=== PATIENT | female | born 1970 | race Caucasian/White ===

== ENCOUNTER 2017-09-14 11:54 | Day surgery (SDC) | END 2017-09-14 18:02 | disposition home or self-care (01) ==

== ENCOUNTER 2018-05-19 07:32 | Observation (INO) | payer OTHER ==
[2018-05-18 15:13] VITALS: BMI 42.9
[2018-05-19] VITALS (29 sets, daily range): BP systolic 110–168; BP diastolic 59–107; PULSE 61–93; RESP 9–23; Ht 162.6 cm; Wt 115.9 kg
[~2018-05-19] VITALS: Ht 162.6 cm; Wt 115.9 kg
[~2018-05-19 07:32] MED LIST: CEFAZOLIN 1 GM INJ ONE; CIPR500T4 PO; LOSA1TAB25 PO; NIFE30TA23 PO; PROPOFOL 200 MG INJ ONE; SEVOFLURANE 15 MIN ONE
[2018-05-19] MEDS ORDERED: SOD CHLORIDE 0.9% 1,000 ML IV SCH (09:00)
[2018-05-19] MEDS ORDERED: CEFAZOLIN 2 GM/50 ML (PMX) 50 ML IVPB ONE (09:00)
--- NOTE | 2018-05-19 10:51 | PREAC ---
Date/Time of Note Date/Time of Note DATE: 05/19/18 TIME: 10:49 Anesthesia Eval and Record Evaluation Time Pre-Procedure Interview DATE: 05/19/18 TIME: 10:49 Age 48 Sex female NPO: 8 hrs Preoperative diagnosis left breast mass Planned procedure left needle localization excisional biopsy Past Medical History Past Medical History: Includes Cardio: HTN GI: Morbid obesity Surgery & Anesthesia Issues No known issue Meds Anticoagulation: No Beta Hai within 24 hr: No Reason Beta Hai not given: Pt. not on B-Hai Reported Medications Nifedipine* (Nifedipine ER*) 30 Mg Tablet.sa, 30 MG PO DAILY, TAB.SA 09/14/17 Losartan-Hydrochlorothiazide (Losartan-HCTZ) 100-25 Mg Tab, 1 TAB PO DAILY, TAB 09/14/17 Discontinued Reported Medications Ciprofloxacin Hcl* (Ciprofloxacin Hcl*) 500 Mg Tablet, 500 MG PO BID, #14 TAB FOR 7 DAYS STARTED 09-13-17 09/14/17 Current Medications Sodium Chloride 1,000 ml @ 75 mls/hr [id number] IV ; Start 05/19/18 at 09:00; Stop 05/19/18 at 22:19 Meds reviewed: Yes Allergies Coded Allergies: No Known Allergy (Unverified , 05/19/18) Allergies Reviewed: Yes Labs/Studies Labs Reviewed: Reviewed by anesthesiologist test: Negative Pre-procedure Exam Airway: Adequate mouth opening, Adequate thyromental dist Mallampati: Mallampati II Teeth: Normal Lung: Normal Heart: Normal ASA Physical Status ASA physical status: 3 Emergency: None Planned Anesthetic General/MAC: LMA Planned Pain Management Parenteral pain med Pre-operative Attestations Prior to commencing anesthesia and surgery, the patient was re-evaluated, there was verification of: *The patient's identity *The results of appropriate recent lab work and preoperative vital signs *The above evaluation not changing prior to induction *Anesthetic plan, risk benefits, alternative and complications discussed with patient/family; questions answered; patient/family understands, accepts and wishes to proceed. KARIE CARL MD May 19, 2018 10:50
[2018-05-19] MEDS ORDERED: PROCHLORPERAZINE 10 MG INJ IV PRN (11:30)
[2018-05-19] MEDS ORDERED: DIPHENHYDRAMINE 50 MG INJ IV PRN (11:30)
[2018-05-19] MEDS ORDERED: MEPERIDINE 25 MG INJ IV PRN (11:30)
[2018-05-19] MEDS ORDERED: HYDROmorphONE 1 MG/5 ML IV SYRINGE IV PRN ×3 (11:30)
[2018-05-19] MEDS ORDERED: EPHEDrine SULFATE 50 MG/5 ML SYG IV PRN (11:30)
[2018-05-19] MEDS ORDERED: LABETALOL HCL 20MG INJ IV PRN (11:30)
[2018-05-19] MEDS ORDERED: FENTAnyl 50 MCG/ML VIAL IV PRN ×3 (11:30)
[2018-05-19] MEDS ORDERED: ONDANSETRON 4 MG INJ IV PRN ×2 (11:30→14:30)
[2018-05-19] MEDS ORDERED: OXYCODONE/ACETAMINOPHEN (5/325) TAB PO PRN ×2 (11:30)
[2018-05-19] MEDS ORDERED: hydrALAzine 20 MG INJ IV PRN (11:30)
[2018-05-19] MEDS ORDERED: LIDOCAINE 2% (SDV) 5 ML INJ ONE (11:43)
[2018-05-19] MEDS ORDERED: PROPOFOL 20 ML ONE (11:43)
[2018-05-19] MEDS ORDERED: MIDAZOLAM 1 MG/ML 2 ML INJ ONE (11:44)
[2018-05-19] MEDS ORDERED: FENTAnyl 50 MCG/ML VIAL ONE (11:44)
[2018-05-19] MEDS ORDERED: DEXAMETHASONE 4 MG/ML 5 ML INJ ONE (12:03)
[2018-05-19] MEDS ORDERED: ONDANSETRON 4 MG INJ ONE (12:03)
[2018-05-19] MEDS ORDERED: FAMOTIDINE 20 MG INJ ONE (12:04)
--- NOTE | 2018-05-19 12:31 | SIPON ---
Date/Time of Note Date/Time of Note DATE: 05/19/18 TIME: 12:30 Operative Report Preoperative Diagnosis Left breast mass Postoperative Diagnosis Same Operation/Procedure Performed Needle directed excisional biopsy of left breast mass Surgeon see signature line glass ribbon machine operator assistant Dr Trevino Anesthesia: general Estimated blood loss: 10 - 50 ml's Transfusion Required none Specimen Left breast mass Grafts/Implants none Complications none BENJAMIN EMERY MD May 19, 2018 12:31
--- NOTE | 2018-05-19 12:49 | OPR ---
DATE OF OPERATION: 05/19/2018 PREOPERATIVE DIAGNOSIS: Left breast mass. POSTOPERATIVE DIAGNOSIS: Left breast mass. OPERATION PERFORMED: Needle-directed left breast excisional biopsy. ANESTHESIA: General. ANESTHESIOLOGIST: Nurse cylinder block hole reliner, Hakeem Casillas. ENGINEERED WOOD DESIGNER: Yves Trevino MD INDICATIONS FOR PROCEDURE: The patient is a 48-year-old female who presented with a tender breast ma ss in the lateral aspect of her breast. It was very vaguely palpable. Biopsies revealed probable be nign findings, but she requested excision. She consented and was scheduled for surgery. DESCRIPTION OF PROCEDURE: The patient was brought to the operating theater, placed under general ane sthesia. The left breast was prepped and draped in usual sterile fashion. The previously placed loc alization wire was in the posterior lateral aspect of the breast. An incision was made directly over the area where the wire was located. Subcutaneous tissue was dissected with cautery. Skin edges we re elevated with skin hooks. Wide circumferential dissection of the tissue associated with the wire then took place using cautery. Specimen was elevated, transected and sent for radiographic confirmat ion of capture. Capture was confirmed. Specimen was then sent for permanent pathologic analysis. T he wound was irrigated. Minimal bleeding was controlled with cautery, and the skin was then reapprox imated and a #10 flat José Antonio-Koroma drain was then brought through the left mid axillary line, cut to size and laid within the large wound cavity. It was secured in place with 2-0 nylon suture in the s tandard fashion and the skin was reapproximated with a 4-0 Vicryl suture in subcuticular fashion. Be nzoin and Steri-Strips were then applied. The patient tolerated procedure well. The estimated blood loss was 20 mL. There were no complications and the patient was transported in stable condition to the recovery room. Dictated By: BENJAMIN EMERY MD TL/NTS Conf#: [id number] DID#: [id number] CC: YVES TREVINO MD;*EndCC*
--- NOTE | 2018-05-19 12:57 | PAC ---
Date/Time of Note Date/Time of Note DATE: 05/19/18 TIME: 12:56 Post-Anesthesia Notes Post-Anesthesia Note Last documented vital signs Vital Signs Date Temp Pulse Resp B/P (MAP) Pulse Ox O2 O2 Flow FiO2 Time Delivery Rate 05/19/18 97.9 61 16 127/78 96 11:21 (94) Activity: WNL Respiratory function: WNL Cardiovascular function: WNL Mental status: Baseline Pain reasonably controlled: Yes Hydration appropriate: Yes Nausea/Vomiting absent: Yes Comments BP: 139/64 HR: 66 RR: 15 T: 98.6 SaO2: 99% KARIE CARL MD May 19, 2018 12:57
[2018-05-19] MEDS ORDERED: HYDROCODONE/APAP (7.5/325) TAB PO PRN (13:00)
--- NOTE | 2018-05-19 14:59 | HP ---
Date/Time of Note Date/Time of Note DATE: 05/19/18 TIME: 14:56 Assessment/Plan VTE Prophylaxis Risk score (from Ns)>0 risk: 0 SCD applied (from Ns): Yes Pharmacological prophylaxis: NA/contraindicated Pharm contraindication: surgical contra Lines/Catheters IV Catheter Type (from Nrsg): Peripheral IV Assessment/Plan Hospital Course 1. S/p needle-directed left breast excisional biopsy by dr Downs. 2. Left breast mass 3. Hypertension 4. Hx of right knee arthritis 5. DDD per pt, lumbar area 6. Obesity 7. HX OF x3. 8. Hx of D and C in 1995. 9. Hx of tubal ligation in 2007 10. Hx of kidney stone removed in 2014 Assessment/Plan -pt is on observation, poss dc tomorrow -pain control morphine qand Oxycodone -SCD bilaterally -GI prophylaxis protonix -2 G Na diet -restart Nifedipine 30 Mg Tablet PO DAILY, and Losartan 50 mg po BID HPI/ROS Admit Date/Time Admit Date/Time May 19, 2018 at 14:22 Hx of Present Illness SURGICAL HISPTRY : x3. She had D and C in 1995. She had tubal ligation in 2007 and she had kidney stone removed in 2014. ROS left breast pain Skin: skin lesions (left skin pain in postop area) PMH/Family/Social Past Medical History Medical History: hypertension, other (dorsalgia) Medications Current Medications Sodium Chloride 1,000 ml @ 75 mls/hr [id number] IV ; Start 05/19/18 at 09:00; Stop 05/19/18 at 22:19 Hydromorphone HCl (Dilaudid) 0.2 mg PACU PRN IV MILD PAIN 1-3; Start 05/19/18 at 11:30; Stop 05/19/18 at 17:00 Hydromorphone HCl (Dilaudid) 0.4 mg PACU PRN IV MOD PAIN 4-6; Start 05/19/18 at 11:30; Stop 05/19/18 at 17:00 Hydromorphone HCl (Dilaudid) 0.6 mg PACU PRN IV SEVERE PAIN 7-10 Last administered on 05/19/18at 13:02; Admin Dose 0.6 MG; Start 05/19/18 at 11:30; Stop 05/19/18 at 17:00 Fentanyl (Sublimaze) 25 mcg PACU ORDER PRN IV MILD PAIN 1-3; Start 05/19/18 at 11:30; Stop 05/19/18 at 17:00 Fentanyl (Sublimaze) 50 mcg PACU ORDER PRN IV MOD PAIN 4-6 Last administered on 05/19/18at 13:02; Admin Dose 50 MCG; Start 05/19/18 at 11:30; Stop 05/19/18 at 17:00 Fentanyl (Sublimaze) 75 mcg PACU ORDER PRN IV SEVERE PAIN 7-10; Start 05/19/18 at 11:30; Stop 05/19/18 at 17:00 Oxycodone/ Acetaminophen (Percocet (5/ 325)) 1 tab PACU ORDER PRN PO .PAIN 1-5; Start 05/19/18 at 11:30; Stop 05/19/18 at 17:00 Oxycodone/ Acetaminophen (Percocet (5/ 325)) 2 tab PACU ORDER PRN PO .PAIN 6-10 Last administered on 05/19/18at 13:55; Admin Dose 2 TAB; Start 05/19/18 at 11:30; Stop 05/19/18 at 17:00 Ondansetron HCl (Zofran Inj) 4 mg PACU ORDER PRN IV NAUSEA/VOMITING Last administered on 05/19/18at 13:02; Admin Dose 4 MG; Start 05/19/18 at 11:30; Stop 05/19/18 at 17:00 Prochlorperazine (Compazine Inj) 5 mg PACU ORDER PRN IV NAUSEA/VOMITING; Start 05/19/18 at 11:30; Stop 05/19/18 at 17:00 Labetalol HCl (Labetalol) 5 mg PACU ORDER PRN IV HIGH BLOOD PRESSURE; Start 05/19/18 at 11:30; Stop 05/19/18 at 17:00 Hydralazine HCl (Apresoline) 5 mg PACU ORDER PRN IV HIGH BLOOD PRESSURE; Start 05/19/18 at 11:30; Stop 05/19/18 at 17:00 Ephedrine Sulfate 5 mg PACU ORDER PRN IV BLOOD PRESSURE SUPPORT; Start 05/19/18 at 11:30; Stop 05/19/18 at 17:00 Meperidine HCl (Demerol) 25 mg PACU ORDER PRN IV .RIGORS Last administered on 05/19/18at 13:16; Admin Dose 25 MG; Start 05/19/18 at 11:30; Stop 05/19/18 at 17:00 Diphenhydramine HCl (Benadryl) 25 mg PACU ORDER PRN IV .PRURITUS; Start 05/19/18 at 11:30; Stop 05/19/18 at 17:00 Influenza Virus Vaccine Quadrival (Fluzone) 0.5 ml ONCE ONCE IM* ; Start 05/22/18 at 10:00; Stop 05/22/18 at 10:01 Morphine Sulfate (morphine) 2 mg Q2H PRN IV SEVERE PAIN LEVEL 7-10; Start 05/19/18 at 14:30 Oxycodone/ Acetaminophen (Percocet (5/ 325)) 2 tab Q4H PRN PO MODERATE PAIN LEVEL 4-6; Start 05/19/18 at 14:30 Ondansetron HCl (Zofran Inj) 4 mg Q4H PRN IV NAUSEA AND/OR VOMITING; Start 05/19/18 at 14:30 Potassium Chloride/Dextrose/ Sod Cl 1,000 ml @ 125 mls/hr Q8H IV ; Start 05/19/18 at 14:30 Coded Allergies: No Known Allergy (Unverified , 05/19/18) Past Surgical History Past Surgical Hx: other (3 c section, D and C in 1995, tubal ligation in 2007, and kidney stone removed in 2014) Social History Alcohol Use: none Smoking Status: Never smoker Drug Use: none Exam/Review of Systems Vital Signs Vitals Vital Signs Date Temp Pulse Resp B/P (MAP) Pulse Ox O2 O2 Flow FiO2 Time Delivery Rate 05/19/18 15 144/72 97 Nasal 14:19 (96) Cannula 05/19/18 68 13:44 05/19/18 98.6 13:03 Exam Constitutional: alert, oriented Head: normocephalic ENMT: nl external ears & nose Neck: supple Respiratory: clear to auscultation Cardiovascular: regular rate and rhythm Gastrointestinal: soft Extremities: normal pulses Skin: other (left breast surgical dressing) KEELY SLADE May 19, 2018 14:59
[2018-05-19] MEDS: D5W-0.45 NACL + KCL 20 MEQ 1,000 ML IV SCH (15:40)
[2018-05-19] MEDS: morphine 2 MG INJ IV PRN ×2 (15:44→21:24)
[2018-05-19] MEDS: OXYCODONE/ACETAMINOPHEN (5/325) TAB PO PRN (18:42)
[2018-05-19] MEDS: LOSARTAN 50 MG TAB PO SCH (21:00)
[2018-05-20] MEDS: D5W-0.45 NACL + KCL 20 MEQ 1,000 ML IV SCH ×2 (00:20→06:30)
[2018-05-20 02:22] VITALS: BP 120/60; PULSE 69; RESP 18
[2018-05-20 06:00] VITALS: BP 142/71; PULSE 72; RESP 18
[2018-05-20] MEDS ORDERED: PANTOPRAZOLE (EC) 40 MG TAB PO SCH (06:00)
[2018-05-20] MEDS: morphine 2 MG INJ IV PRN (06:02)
[2018-05-20 07:42] VITALS: BP 111/67; PULSE 70; RESP 18
[2018-05-20] MEDS: LOSARTAN 50 MG TAB PO SCH (08:29)
[2018-05-20] MEDS ORDERED: NIFEdipine (XL) 30 MG TAB PO SCH (09:00)
[2018-05-20] MEDS: OXYCODONE/ACETAMINOPHEN (5/325) TAB PO PRN ×2 (10:00→13:58)
--- NOTE | 2018-05-20 13:00 | DS ---
Date/Time of Note Date/Time of Note DATE: 05/20/18 TIME: 13:00 Discharge Summary Admission/Discharge Info Admit Date/Time May 19, 2018 at 14:22 Discharge Date/Time Discharge Diagnosis 1. S/p needle-directed left breast excisional biopsy by dr Ibarra. Patient Condition: Stable Consults DR Ibarra, Surgery Hospital Course This 48 yo obese female with medical history of hypertension had mass found in left breast. Dr Ibarra had biopsy of breast mass. Pt is in recovery room with minimal pain and dressing with CORNELL bulb. SURGICAL HISTORY : x3. She had D and C in 1995. She had tubal ligation in 2007 and she had kidney stone removed in 2014. Impression: 1. S/p needle-directed left breast excisional biopsy by dr Ibarra. 2. Left breast mass 3. Hypertension 4. Hx of right knee arthritis 5. DDD per pt, lumbar area 6. Obesity 7. HX OF x3. 8. Hx of D and C in 1995. 9. Hx of tubal ligation in 2007 10. Hx of kidney stone removed in 2014 During hospitalization pt was admit for observation, her pain was controlled, Her BP was under control as well. Pt was freely ambulated, she was eating regular diet. Her surgical dressing was intact. On the next day 05/20/2018 Dr Aquino, surgery MD who covered Dr Ibarra consulted the patient and cleared her for discharge. Pt was discharged home. Home Meds Reported Medications Nifedipine* (Nifedipine ER*) 30 Mg Tablet.sa, 30 MG PO DAILY, TAB.SA 09/14/17 Losartan-Hydrochlorothiazide (Losartan-HCTZ) 100-25 Mg Tab, 1 TAB PO DAILY, TAB 09/14/17 Discontinued Reported Medications Ciprofloxacin Hcl* (Ciprofloxacin Hcl*) 500 Mg Tablet, 500 MG PO BID, #14 TAB FOR 7 DAYS STARTED 09-13-17 09/14/17 Follow-up Plan Dr Ibarra office Primary Care Provider Kolton Luz MD Time spent on discharge: < 30 minutes Pending Labs Laboratory Tests Test 05/20/18 04:33 05/20/18 07:17 White Blood Count 12.3 10^3/ul (4.8-10.8) Red Blood Count 4.67 10^6/ul (4.20-5.40) Hemoglobin 13.2 g/dl (12.0-16.0) Hematocrit 40.0 % (37.0-47.0) Mean Corpuscular Volume 85.7 fl (82.0-101.0) Mean Corpuscular Hemoglobin 28.3 pg (29.0-33.0) Mean Corpuscular 33.0 g/dl (32.0-37.0) Hemoglobin Concent Red Cell Distribution Width 12.8 % (11.5-14.5) Platelet Count 284 10^3/UL (140-415) Mean Platelet Volume 11.4 fl (7.4-10.4) Immature Granulocytes % 0.300 % (0.001-0.429) Neutrophils % 87.8 % (39.0-77.0) Lymphocytes % 7.6 % (15.0-51.0) Monocytes % 4.1 % (0.0-11.0) Eosinophils % 0.0 % (0.0-7.0) Basophils % 0.2 % (0.0-2.0) Nucleated Red Blood Cells % 0.0 /100WBC (0.0-0.0) Immature Granulocytes # 0.040 10^3/ul (0.0-0.031) Neutrophils # 10.8 10^3/ul (1.6-7.5) Lymphocytes # 0.9 10^3/ul (0.8-2.9) Monocytes # 0.5 10^3/ul (0.3-0.9) Eosinophils # 0.0 10^3/ul (0.0-0.5) Basophils # 0.0 10^3/ul (0.0-0.1) Nucleated Red Blood Cells # 0.0 10^3/ul (0.0-0.0) Sodium Level 136 mmol/L (135-144) Potassium Level 4.0 mmol/L (3.5-5.1) Chloride Level 104 mmol/L (97-110) Carbon Dioxide Level 26 mmol/L (21-31) Anion Gap 6 (5-13) Blood Urea Nitrogen 10 mg/dl (7-20) Creatinine 0.72 mg/dl (0.44-1.00) Est Glomerular Filtrat > 60 mL/min (>60) Rate mL/min Glucose Level 137 mg/dl (70-220) Hemoglobin A1c 5.0 % (0-5.9) Calcium Level 8.8 mg/dl (8.4-10.2) Lab Scanned Report [facility] [id number] KEELY SLADE May 20, 2018 13:00
--- NOTE | 2018-05-20 13:01 | PDOCDIS ---
Discharge Instructions DIAGNOSIS Discharge Diagnosis s/p biopsy CONDITION [id number] Patient Condition: [id number] Stable ACTIVITY: [id number] Activity Restrictions: [id number] Slowly Increase Activity Rest between Activity Avoid heavy lifting [id number] Bathing Restrictions: [id number] Sponge Bath FOLLOW UP/APPOINTMENTS Follow-up Plan Dr jacob office 1 week KEELY SLADE May 20, 2018 13:01
== END 2018-05-20 14:05 | disposition home or self-care (01) ==
LOC: SDS 07:32 → REC 14:22 → MS1 15:08
PROVIDERS: ADMIT Surgery Surgical Oncology; ATTEND Surgery Surgical Oncology
DX: N63.0 Unspecified lump in unspecified breast (principal); I10 Essential (primary) hypertension; M51.36 Other intervertebral disc degeneration, lumbar region; E66.9 Obesity, unspecified; Z68.41 Body mass index [BMI] 40.0-44.9, adult; M17.11 Unilateral primary osteoarthritis, right knee
CPT/HCPCS: 19120; 80048; 83036; 84703; 85025; 88307; J0690; J1100; J1170; J2175; J2250; J2270; J2405; J3010; J3480; Z7500; Z7512; Z7610; G0378